=== PATIENT | female | born 1975 | race Caucasian/White ===

== ENCOUNTER 2018-09-13 05:03 | Day surgery (SDC) | payer BC ==
[2018-09-10 12:42] VITALS: BMI 27.4
[2018-09-13] MEDS ORDERED: PROPOFOL 20 ML ONE (13:50)
[2018-09-13] MEDS ORDERED: MIDAZOLAM HCL 2 MG/2 ML SINGLE DOSE VIAL ONE (13:50)
[2018-09-13] MEDS ORDERED: ONDANSETRON 4 MG/2 ML VIAL IVPUSH PRN ×2 (14:06→14:31)
[2018-09-13] MEDS ORDERED: oxyCODONE HCL 5 MG TABLET PO PRN (14:06)
[2018-09-13] MEDS ORDERED: PROMETHAZINE HCL 25 MG/1 ML VIAL IVPUSH PRN (14:06)
[2018-09-13] MEDS ORDERED: LACTATED RINGERS SOLUTION 1,000 ML IV SCH (14:15)
[2018-09-13] MEDS ORDERED: LIDOCAINE HCL/PF 2% SDV 5ML VIAL ONE (14:29)
[2018-09-13] MEDS ORDERED: IBUPROFEN 600 MG TABLET (FP) PO PRN (14:31)
[2018-09-13] MEDS ORDERED: IBUPROFEN 800 MG/8 ML IJ IVPB PRN (14:31)
[2018-09-13] MEDS ORDERED: DEXAMETHASONE SOD PHOSPHATE 4 MG/1 ML VIAL ONE (14:34)
[2018-09-13] MEDS ORDERED: ELECTROLYTE-148 SOLN 1,000 ML IV SCH (14:45)
[2018-09-13] MEDS ORDERED: KETOROLAC TROMETHAMINE 30 MG/1 ML VIAL ONE (14:54)
[2018-09-13 16:25] VITALS: TEMP 98
[2018-09-13 18:04] VITALS: BP 130/82; PULSE 76
--- NOTE | 2018-09-16 15:35 | PATH ---
Surgical Pathology Report Patient Name: NAKUL UMAÑA [facility]. Rec. #: [id number] /Age/Gender: 1975 (Age: 42) / F Account: [id number] Location: [facility] SURGICAL Taken: 09/13/2018 Received: 09/14/2018 Reported: 09/16/2018 Physicians: Jerry Funez M.D. Specimen(s) Received ENDOMETRIAL CURETTINGS Clinical History Complex endometrial hyperplasia Final Diagnosis ENDOMETRIUM, CURETTAGE: FRAGMENTS OF SUBMUCOSAL LEIOMYOMA. INACTIVE ENDOMETRIUM. SCANT BENIGN SQUAMOUS (CERVICAL) MUCOSA. Electronically Signed Camila Pugh M.D. Gross Description Received in formalin labeled "endometrial curettings," is a 3.4 x 3.0 x 0.4 cm aggregate of hayes-brown soft tissue fragments admixed with mucus. The formalin is filtered and the specimen is entirely submitted in 2 cassettes. /09/14/2018 saudi/09/14/2018
--- NOTE | 2018-09-27 08:24 | OP ---
DATE OF OPERATION: 09/13/2018 PREOPERATIVE DIAGNOSIS: Complex endometrial hyperplasia, infertility, fibroid uterus. POSTOPERATIVE DIAGNOSIS: Complex endometrial hyperplasia, infertility, fibroid uterus. PROCEDURE: Hysteroscopy, dilation and curettage, and resection of the submucous myoma. SURGEON: Jerry Funez MD ANESTHESIA: General. ESTIMATED BLOOD LOSS: 25 mL OPERATION: Patient was taken to the operating room. Under adequate general anesthesia in the dorsal lithotomy position examination under anesthesia revealed external genitalia to be normal. Vagina was normal. Cervix was clean, no gross lesion. Uterus was prominent. Adnexa no masses were palpable. Then with weighted speculum in the vagina anterior lip of the cervix was grasped with single-tooth tenaculum. Uterine cavity was sounded to 9 cm. Then cervix slightly dilated and then Symphion resectoscope was introduced into the uterine cavity and the cervical canal appeared to be normal. Endometrium for most part was atrophic. There was a submucous myoma at the fundal area of the uterus. Both cornual regions were identified. No polyp was seen. No other abnormality was noted. Then with the resectoscope the polyp was resected and removed, suctioned, and then no active bleeding was seen. Then endometrium was curetted. Patient tolerated procedure well, left the OR in good condition. JERRY FUNEZ M.D. /[id number]
== END 2018-09-13 17:30 | disposition home or self-care (01) ==
LOC: JASU-SURG 05:03
PROVIDERS: ATTEND Obstetrics & Gynecology
PROC: 0UJD8ZZ Inspection of Uterus and Cervix, Via Natural or Artificial Opening Endoscopic (ICD-10-PCS; 2018-09-13)
PROC: 0UB98ZZ Excision of Uterus, Via Natural or Artificial Opening Endoscopic (ICD-10-PCS; principal; 2018-09-13 14:00)
PROC: 0UDB7ZX Extraction of Endometrium, Via Natural or Artificial Opening, Diagnostic (ICD-10-PCS; 2018-09-13 14:00)
DX: D25.0 Submucous leiomyoma of uterus (principal); N85.01 Benign endometrial hyperplasia; N97.9 Female infertility, unspecified
CPT/HCPCS: 88305-TC; 94760